=== PATIENT | female | born 1950 | race Caucasian/White ===

== ENCOUNTER → 2018-03-06 10:58 | Outpatient (CLI) | payer MEDICARE, OTHER, SELFPAY ==
--- NOTE | 2018-03-06 | DI.MG.S_ITS ---
BILATERAL DIGITAL SCREENING MAMMOGRAM 3D/2D WITH CAD: 03/06/2018 CLINICAL: Routine screening. Family history of breast cancer. Comparison is made to exams dated: 03/05/2017 mammogram, 02/14/2017 mammogram, and 02/09/2016 mammogram - [facility]. The tissue of both breasts is heterogeneously dense. This may lower the sensitivity of mammography. Current study was also evaluated with a Computer Aided Detection (CAD) system. There is architectural distortion in the right breast middle depth central to the nipple seen on the craniocaudal view only. No other significant masses, calcifications, or other findings are seen in either breast. IMPRESSION: INCOMPLETE: NEEDS ADDITIONAL IMAGING EVALUATION The architectural distortion in the right breast is indeterminate. Additional views with possible ultrasound are recommended. This exam was interpreted at Station ID: [id number]. NOTE: For mammograms, a report in lay terms will be sent to the patient. Approximately 15% of breast malignancies will not be visualized mammographically. In the management of a palpable breast mass, a negative mammogram must not discourage biopsy of a clinically suspicious lesion. Electronically Signed By: Karlene lewis/leslie:03/06/2018 11:47:42 letter sent: Additional Imaging Needed ACR BI-RADS Category 0: Incomplete 3340F
== END ==
PROVIDERS: Family Provider Physician Assistant; PCP Physician Assistant; Visit Provider Physician Assistant
DX: Z12.31 Encounter for screening mammogram for malignant neoplasm of breast (principal); Z80.3 Family history of malignant neoplasm of breast
CPT/HCPCS: 77063; 77067

== ENCOUNTER → 2018-03-17 09:41 | Outpatient (CLI) | payer MEDICARE, OTHER, SELFPAY ==
--- NOTE | 2018-03-17 09:44 | DI.MG.S_ITS ---
UNILATERAL RIGHT DIGITAL DIAGNOSTIC MAMMOGRAM 3D/2D WITH ADDITIONAL VIEWS: 03/17/2018 CLINICAL: Additional evaluation requested from prior study. Comparison is made to exams dated: 03/06/2018 mammogram, 03/05/2017 mammogram, and 02/14/2017 mammogram - [facility]. The tissue of the right breast is heterogeneously dense. This may lower the sensitivity of mammography. There is irregular low density architectural distortion with an indistinct margin in the right breast middle depth central to the nipple seen on the craniocaudal view only. No other significant masses or calcifications are seen in the breast. IMPRESSION: INCOMPLETE: NEEDS ADDITIONAL IMAGING EVALUATION The irregular low density architectural distortion in the right breast is indeterminate. An ultrasound is recommended. This exam was interpreted at Station ID: [id number]. NOTE: For mammograms, a report in lay terms will be sent to the patient. Approximately 15% of breast malignancies will not be visualized mammographically. In the management of a palpable breast mass, a negative mammogram must not discourage biopsy of a clinically suspicious lesion. Electronically Signed By: Adria aaron/leslie:03/17/2018 10:44:00 letter sent: Need Ultrasound ACR BI-RADS Category 0: Incomplete 3340F
--- NOTE | 2018-03-17 09:44 | DI.US.S_ITS ---
ULTRASOUND OF RIGHT BREAST: 03/17/2018 CLINICAL: Follow up from addtional views. Comparison is made to exams dated: 03/17/2018 mammogram, 03/06/2018 mammogram, 03/05/2017 mammogram, and 02/14/2017 mammogram - [facility]. Color flow and real-time ultrasound of the right breast were performed on the areas of interest. There are multiple benign oval simple cysts in the right breast central to the nipple anterior depth. These oval simple cysts are hypoechoic with posterior acoustic enhancement. Color flow imaging demonstrates that there is no vascularity present. IMPRESSION: INCOMPLETE: NEEDS ADDITIONAL IMAGING EVALUATION - FOLLOW-UP RECOMMENDED The multiple oval simple cysts in the right breast are benign. There is no abnormality seen in the right breast to correspond with the architectural distortion seen on mammography, however, breast MRI is recommended. This exam was interpreted at Station ID: [id number]. Electronically Signed By: Adria Huizar M.D. ddp/:03/17/2018 11:28:26 letter sent: Need MRI Ultrasound BI-RADS: 0 Indeterminate
== END ==
PROVIDERS: Family Provider Physician Assistant; PCP Physician Assistant; Visit Provider Physician Assistant
DX: R92.8 Other abnormal and inconclusive findings on diagnostic imaging of breast (principal); N60.02 Solitary cyst of left breast
CPT/HCPCS: 76642; 77065; G0279

== ENCOUNTER → 2018-04-03 09:15 | Outpatient (CLI) | payer MEDICARE, OTHER, SELFPAY ==
[2018-04-03 10:17] LABS: BUN Creatinine Ratio 22.5 (6-22); Blood Urea Nitrogen 18 mg/dL (7-17); Estimated Glomerular Filt Rate > 60.0 mL/min (>60)
== END ==
PROVIDERS: PCP Physician Assistant; Visit Provider Physician Assistant
DX: Z01.818 Encounter for other preprocedural examination (principal)
CPT/HCPCS: 36415; 82565; 84520

== ENCOUNTER → 2018-04-08 09:26 | Outpatient (CLI) | payer MEDICARE, OTHER, SELFPAY ==
--- NOTE | 2018-04-08 09:29 | DI.MRI.S_ITS ---
BREAST MRI OF BOTH BREASTS : 04/08/2018 CLINICAL: Abnormal mammogram right breast. Comparison is made to exams dated: 03/17/2018 ultrasound, 03/17/2018 mammogram, and 03/06/2018 mammogram - [facility]. Informed consent was obtained from the patient. Axial T1, T2, and pre and post contrast T1 images were obtained. Bilateral background breast enhancement is mild. Prior mammographic finding is no longer seen right breast. There are no areas of distortion, abnormal enhancement or suspicious masses in either breast. IMPRESSION: NEGATIVE There is no MRi evidence of malignancy bilaterally. Questioned right breast distortion resolves on MRI imaging. A 1 year screening mammogram is recommended. This exam was interpreted at Station ID: [id number]. Electronically Signed By: Forest Dewitt M.D. cj/:04/08/2018 16:28:59 letter sent: Normal Exam ACR BI-RADS Category 1: Negative 3341F
== END ==
PROVIDERS: Family Provider Physician Assistant; PCP Physician Assistant; Visit Provider Physician Assistant
DX: R92.8 Other abnormal and inconclusive findings on diagnostic imaging of breast (principal)
CPT/HCPCS: A9579; C8908

== ENCOUNTER → 2018-11-03 08:51 | Outpatient (CLI) | payer MEDICARE, OTHER, SELFPAY ==
[2018-11-03 10:35] LABS: Alanine Aminotransferase 24 IU/L (9-52); Albumin 4.5 g/dL (3.5-5.0); Albumin Globulin Ratio 1.4 (1.0-2.8); Alkaline Phosphatase 84 U/L (38-126); Aspartate Aminotransferase 22 IU/L (14-36); Bilirubin Total 0.6 mg/dL (0.2-1.3); Blood Urea Nitrogen 16 mg/dL (7-17); Calcium 9.8 mg/dL (8.4-10.2); Carbon Dioxide 28 mmol/L (22-32); Chloride 101 mmol/L (98-107); Cholesterol 234 mg/dL (140-199); Estimated Glomerular Filt Rate 55.5 mL/min (>60); Globulin 3.2 g/dL (1.7-4.1); Glucose 95 mg/dL (80-110); HDL Cholesterol 66 mg/dL (40-60); HEMOLYSIS < 15 (0-50); LDL Cholesterol Calculated 154 mg/dL (<100); Sodium 139 mmol/L (137-145); Total Protein 7.7 g/dL (6.3-8.2); Triglycerides 72 mg/dL (35-150)
[2018-11-03 10:52] LABS: Potassium 5.4 mmol/L (3.4-5.1)
== END ==
PROVIDERS: PCP Physician Assistant; Visit Provider Physician Assistant
DX: E78.5 Hyperlipidemia, unspecified (principal)
CPT/HCPCS: 36415; 80053; 80061

== ENCOUNTER → 2019-05-04 11:51 | Outpatient (CLI) | payer MEDICARE, OTHER, SELFPAY ==
--- NOTE | 2019-05-04 | DI.MG.S_ITS ---
BILATERAL DIGITAL SCREENING MAMMOGRAM 3D/2D WITH CAD: 05/04/2019 CLINICAL: Routine screening. Family history of breast cancer. Comparison is made to exams dated: 03/17/2018 mammogram, 02/14/2017 mammogram, and 02/09/2016 mammogram - [facility]. The tissue of both breasts is heterogeneously dense. This may lower the sensitivity of mammography. Current study was also evaluated with a Computer Aided Detection (CAD) system. There is a mole marker on the left breast. No significant masses, calcifications, or other findings are seen in either breast. There has been no significant interval change. IMPRESSION: NEGATIVE There is no mammographic evidence of malignancy. A 1 year screening mammogram is recommended. This exam was interpreted at Station ID: [id number]. NOTE: For mammograms, a report in lay terms will be sent to the patient. Approximately 15% of breast malignancies will not be visualized mammographically. In the management of a palpable breast mass, a negative mammogram must not discourage biopsy of a clinically suspicious lesion. Electronically Signed By: Jerome queen/leslie:05/04/2019 18:29:16 letter sent: Normal Exam ACR BI-RADS Category 1: Negative 3341F
== END ==
PROVIDERS: PCP Physician Assistant; Visit Provider Physician Assistant
DX: Z12.31 Encounter for screening mammogram for malignant neoplasm of breast (principal); Z80.3 Family history of malignant neoplasm of breast
CPT/HCPCS: 77063; 77067

== ENCOUNTER → 2020-05-06 14:59 | Outpatient (CLI) | payer MEDICARE, OTHER, SELFPAY ==
--- NOTE | 2020-05-06 | DI.MG.S_ITS ---
BILATERAL DIGITAL SCREENING MAMMOGRAM 3D/2D WITH CAD: 05/06/2020 CLINICAL: Routine screening. Family history of breast cancer. Comparison is made to exams dated: 05/04/2019 mammogram, 03/17/2018 mammogram, 03/06/2018 mammogram, 02/09/2016 mammogram, and 02/07/2015 mammogram - [facility]. The tissue of both breasts is heterogeneously dense. This may lower the sensitivity of mammography. Current study was also evaluated with a Computer Aided Detection (CAD) system. There are benign calcifications in both breasts. No significant masses, calcifications, or other findings are seen in either breast. There has been no significant interval change. IMPRESSION: BENIGN There is no mammographic evidence of malignancy. A 1 year screening mammogram is recommended. This exam was interpreted at Station ID: [id number]. NOTE: For mammograms, a report in lay terms will be sent to the patient. Approximately 15% of breast malignancies will not be visualized mammographically. In the management of a palpable breast mass, a negative mammogram must not discourage biopsy of a clinically suspicious lesion. Electronically Signed By: Mick dodd/leslie:05/06/2020 17:43:33 letter sent: Normal Exam ACR BI-RADS Category 2: Benign Finding(s) 3342F
== END ==
PROVIDERS: PCP Physician Assistant; Referring Provider Physician Assistant; Visit Provider Physician Assistant
DX: Z12.31 Encounter for screening mammogram for malignant neoplasm of breast (principal); Z80.3 Family history of malignant neoplasm of breast
CPT/HCPCS: 77063; 77067

== ENCOUNTER 2021-02-01 15:41 | Emergency (ER) | payer MEDICARE, OTHER, SELFPAY ==
[2021-02-01 15:47] VITALS: BP 146/70; PULSE 90; RESP 18; TEMP 37.2; O2SAT 96
--- NOTE | 2021-02-01 15:51 | DI.RAD.S_ITS ---
PROCEDURE: XR ANKLE RT MIN 3V INDICATIONS: twisting injury TECHNIQUE: 3 views of the ankle were acquired. COMPARISON: [facility], , ANKLE 3 VIEWS LEFT, 04/04/2015, 8:36. FINDINGS: Bones: No dislocations. Ankle mortise is normally aligned. No suspicious bony lesions. Transverse fracture at the lateral malleolus, minimally displaced. Soft tissues: No tibiotalar joint effusion. Achilles tendon appears normal. IMPRESSION: Acute transverse fracture lateral malleolus with overlying soft tissue swelling, without widening of the ankle mortise joint. Dictated by: Colin Amaral M.D. on 02/01/2021 at 16:36 Approved by: Colin Amaral M.D. on 02/01/2021 at 16:37
--- NOTE | 2021-02-01 16:20 | ED.LOWEXIN ---
HPI - Extremity Injury (Lower) General Chief Complaint: Extremity Injury, Lower Stated Complaint: fell and possible broke or sprained right foot Time Seen by Provider: 02/01/21 15:48 Source: patient Mode of arrival: Ambulatory Limitations: no limitations History of Present Illness HPI Narrative: 71-year-old female nonsmoker with noncontributory medical history presents with a family member and a chief complaint of stepping awkwardly on her right ankle and having pain and swelling over her left ankle. She now has increased pain with ambulation and improvement with rest. She denies any numbness, tingling or weakness. She denies history of the same. She denies any calf or sparrow pain or knee or hip injury. She states that she was exiting a trailer when a dog on a leash got caught up in her feet causing her to fall forward instep awkwardly complaint: ankle injury Onset (ago): hour(s) Type of Injury: inversion Place: street/outdoors Severity: moderate Relieving factors: rest Exacerbating factors: weight bearing and movement Context: fall and walking Associated symptoms: snap/pop sensation and able to partially bear weight Other symptoms: none Related Data Home Medications Medication Instructions Recorded Confirmed aspirin 81 mg tablet,delayed 81 mg PO DAILY 11/06/18 06/14/20 release cholecalciferol (vitamin D3) 25 25 mcg PO DAILY 06/14/20 06/14/20 mcg (1,000 unit) capsule turmeric liquid See Rx Instructions PO 06/14/20 Allergies Allergy/AdvReac Type Severity Reaction Status Date / Time meperidine [MEPERIDINE] AdvReac Intermediate (DEMEROL) Verified 11/06/18 15:02 LOW BLOOD PRESSURE Review of Systems Constitutional Constitutional: Denies chills, Denies fatigue, Denies fever(s), Denies frequent falls, Denies lethargy and Denies weakness Eyes Eyes: Denies change in vision, Denies eye discharge, Denies irritation and Denies loss of vision ENT Ears, Nose, Mouth, and Throat: Denies change in voice, Denies dizziness, Denies neck pain, Denies sore throat and Denies throat swelling Cardiovascular Cardiovascular: Denies chest pain, Denies irregular heart rhythm, Denies lightheadedness, Denies palpitations, Denies dyspnea, Denies dyspnea on exertion and Denies orthopnea Respiratory Respiratory: Denies cough, Denies dyspnea, Denies dyspnea on exertion and Denies wheezing Gastrointestinal Gastrointestinal: Denies abdominal pain, Denies change in bowel habits, Denies diarrhea, Denies nausea and Denies vomiting Musculoskeletal Musculoskeletal: Reports joint swelling, Reports limited range of motion, Denies neck pain and Denies numbness Integumentary/Breasts Skin/Breast: Denies pruritus, Denies erythema, Denies rash and Denies wounds Neurologic Neurologic: Denies behavioral changes, Denies confusion, Denies dizziness, Denies frequent falls, Denies loss of vision, Denies numbness and Denies weakness Psychiatric Psychiatric: Denies anxiety, Denies behavioral changes, Denies confusion, Denies depression, Denies homicidal ideation and Denies suicidal ideation Endocrine Endocrine: Denies fatigue, Denies flushing and Denies palpitations Hematologic/Lymphatic Hematologic/Lymphatic: Denies easy bruising Allergic/Immunologic Allergic/Immunologic: Denies urticaria, Denies throat swelling and Denies wheezing Patient History Medical History Cystocele Weakness of pelvic floor Family History Father COPD (chronic obstructive pulmonary disease) Social History Smoking Status: Never smoker Smoking Status: Never smoker Exam Narrative Exam Narrative: GEN: AOx3 and in mild distress EYES: Pupils are equal, round, and reactive to light and accommodation. Extraoccular muscles are intact bilaterally. There is no subconjunctival hemorrhage or exudate. CHEST: Lungs are clear to auscultation bilaterally and free of wheezes, rales, or rhonchi. Heart rate is regular rhythm, there are no murmurs, clicks, rubs, or gallops. There is no chest wall tenderness. ABD: Abdomen is soft and nontender. There is no guarding or rebound. Bowel sounds are normal in all 4 quadrants. There is no mass or organomegaly. EXT: Full but painful range of motion of the right ankle with swelling and tenderness to palpation over the lateral malleolus. This injury is closed, isolated and neurovascularly intact SKIN: Warm, pink, and dry. No erythema or rash Initial Vital Signs Initial Vital Signs: Vital Signs Temperature 98.9 F 02/01/21 15:47 Pulse Rate 90 02/01/21 15:47 Respiratory Rate 18 02/01/21 15:47 Blood Pressure 146/70 H 02/01/21 15:47 Pulse Oximetry 96 02/01/21 15:47 Procedures Orthopedic Splinting/Casting Injury #1: Side: right Lower Extremity Injury Location: ankle Lower Extremity Immobilizer: boot orthosis Other Orthopedic Equipment: crutches Post splinting neuro exam: intact Post splinting vascular exam: intact Placed by: Nursing Course Orders Ordered: ED Orders 02/01/21 15:51 XR ankle RT min 3V Stat Consultations Consultation #1: I have discussed this patient with the on-call orthopedist who recommends weight-bearing as tolerated in a boot orthosis, crutches if needed, pain control and follow-up Vital Signs Vital signs: Vital Signs - 8 hr 02/01/21 15:47 02/01/21 17:30 Temperature 98.9 F Pulse Rate 90 73 Respiratory Rate 18 18 Blood Pressure 146/70 H 141/66 H Pulse Oximetry 96 98 MDM - Extremity Injury (Lower) Imaging Data Extremity x-ray #1: Radiologist's Impression: Chart Viewer Diagnostics DATE TYPE STATUS REF RANGE/AUTHOR Hx Today 15:51 Colin Amaral 05/06/20 00:00 Call,Mick 05/04/19 00:00 Jerome Mcmullen 04/08/18 09:29 Emmanuel Dewitt 03/17/18 09:44 Huizar,Adria 03/17/18 09:44 Huizar,Adria 03/06/18 00:00 Karlene Irving Kathryn M 71, F0 1950 [facility] 81.647kg Extremity Injury, Lower Search Chart No Data to Display NonFormulary Not Included in Conflicts (DEMEROL) LOW BLOOD PRESSURE ONSET Today 17:30 Gabriela Jaimes 71 F [address] [id number] ReportSigned Patient: Jaimes,Gabriela MMR#: [id number]: 1950cct:[id number]/Sex: 71 / FDate of Service: 02/01/21Loc: EDAccession Number: [id number] Procedure: XR ankle RT min 3V Ordering Provider: Juarez Ruiz D.O. PROCEDURE: XR ANKLE RT MIN 3V INDICATIONS: twisting injury TECHNIQUE: 3 views of the ankle were acquired. COMPARISON: [facility], , ANKLE 3 VIEWS LEFT, 04/04/2015, 8:36. FINDINGS: Bones: No dislocations. Ankle mortise is normally aligned. No suspicious bony lesions. Transverse fracture at the lateral malleolus, minimally displaced. Soft tissues: No tibiotalar joint effusion. Achilles tendon appears normal. IMPRESSION: Acute transverse fracture lateral malleolus with overlying soft tissue swelling, without widening of the ankle mortise joint. Dictated by: Colin Amaral M.D. on 02/01/2021 at 16:36 Approved by: Colin Amaral M.D. on 02/01/2021 at 16:37 Discharge Plan Departure Patient Disposition: Home Clinical Impression: Ankle fracture, lateral malleolus, closed Qualifiers: Encounter type: initial encounter Fracture alignment: nondisplaced Laterality: right Qualified Code(s): S82.64XA - Nondisplaced fracture of lateral malleolus of right fibula, initial encounter for closed fracture Instructions: DI for Ankle Fracture Activity Restrictions/Additional Instructions: *You have been diagnosed with [nondisplaced lateral malleolus fracture.] *What to do: *Please continue to take your regular medications as directed. [ ] New medication prescriptions sent to your pharmacy: [ ] [ ] New medication written as a paper prescription [x ] No new medications given * please follow-up with [facility], call them tomorrow morning and let them know that you were seen in the emergency department and we asked that you be seen at their clinic in follow-up *Return to Emergency Department if you should have any new, worsening or concerning symptoms, such as [fever greater than 101 F, shaking chills, worsening pain, persistent vomiting or other bothersome symptoms] Prescriptions: No Action aspirin [Aspirin Low Dose] 81 mg tablet,delayed release (DR/EC) 81 mg PO DAILY RF: 0 cholecalciferol (vitamin D3) 25 mcg (1,000 unit) capsule 25 mcg PO DAILY RF: 0 turmeric liquid See Rx Instructions PO RF: 0 Referrals: Katherine Angeles ARNP [Primary Care Provider] - Bella Adame MD [Physician] -
[2021-02-01 17:30] VITALS: BP 141/66; PULSE 73; RESP 18; O2SAT 98
== END 2021-02-01 17:29 | disposition home or self-care (01) ==
PROVIDERS: Emergency Provider Emergency Medicine; PCP Nurse Practitioner Family
DX: S82.64XA Nondisplaced fracture of lateral malleolus of right fibula, initial encounter for closed fracture (principal)
CPT/HCPCS: 73610; 99283

== ENCOUNTER → 2021-05-26 17:04 | Outpatient (CLI) | payer MEDICARE, OTHER, SELFPAY ==
--- NOTE | 2021-05-26 | DI.MG.S_ITS ---
BILATERAL DIGITAL SCREENING MAMMOGRAM 3D/2D WITH CAD: 05/26/2021 CLINICAL: Family history of breast cancer. Comparison is made to exams dated: 05/06/2020 mammogram, 05/04/2019 mammogram, 04/08/2018 breast MRI, 03/06/2018 mammogram, and 02/14/2017 mammogram - [facility]. The tissue of both breasts is heterogeneously dense. This may lower the sensitivity of mammography. Current study was also evaluated with a Computer Aided Detection (CAD) system. There are benign calcifications in both breasts. No significant masses, calcifications, or other findings are seen in either breast. There has been no significant interval change. IMPRESSION: BENIGN There is no mammographic evidence of malignancy. A 1 year screening mammogram is recommended. This exam was interpreted at Station ID: [id number]. NOTE: For mammograms, a report in lay terms will be sent to the patient. Approximately 15% of breast malignancies will not be visualized mammographically. In the management of a palpable breast mass, a negative mammogram must not discourage biopsy of a clinically suspicious lesion. Electronically Signed By: Carlos boles/leslie:05/29/2021 09:32:13 letter sent: Normal Exam ACR BI-RADS Category 2: Benign Finding(s) 3342F
== END ==
PROVIDERS: PCP Nurse Practitioner Family; Referring Provider Nurse Practitioner Family; Visit Provider Nurse Practitioner Family
DX: Z12.31 Encounter for screening mammogram for malignant neoplasm of breast (principal); Z80.3 Family history of malignant neoplasm of breast
CPT/HCPCS: 77063; 77067

== ENCOUNTER → 2022-06-12 09:42 | Outpatient (CLI) | payer MEDICARE, OTHER, SELFPAY ==
--- NOTE | 2022-06-12 09:46 | DI.RAD.S_ITS ---
PROCEDURE: XR CHEST 2V INDICATIONS: eval recurrent L chest wall sensation TECHNIQUE: 2 views of the chest were acquired. COMPARISON: [facility], , CHEST 2 VIEW, 11/23/2013, 9:22. FINDINGS: Surgical changes and devices: None. Lungs and pleura: Lungs are clear. No pleural effusions or pneumothorax. Mediastinum: Mediastinal contours are normal. Heart size is normal. Bones and chest wall: No suspicious bony abnormalities. Soft tissues appear unremarkable. IMPRESSION: No acute cardiopulmonary abnormality. Dictated by: Mick Chris M.D. on 06/12/2022 at 10:34 Approved by: Mick Chris M.D. on 06/12/2022 at 10:36
== END ==
PROVIDERS: PCP Registered Nurse Diabetes Educator; Referring Provider Registered Nurse Diabetes Educator; Visit Provider Registered Nurse Diabetes Educator
DX: M81.0 Age-related osteoporosis without current pathological fracture (principal); R09.89 Other specified symptoms and signs involving the circulatory and respiratory systems; M85.89 Other specified disorders of bone density and structure, multiple sites
CPT/HCPCS: 71046; 77080

== ENCOUNTER → 2022-06-15 15:04 | Outpatient (CLI) | payer MEDICARE, OTHER, SELFPAY ==
--- NOTE | 2022-06-15 | DI.MG.S_ITS ---
BILATERAL DIGITAL SCREENING MAMMOGRAM 3D/2D WITH CAD: 06/15/2022 CLINICAL: Routine screening. Family history of breast cancer. Comparison is made to exams dated: 05/26/2021 mammogram, 05/06/2020 mammogram, and 05/04/2019 mammogram - [facility]. Both breasts are heterogeneously dense, which may obscure small masses (category c / 51-75% glandular tissue). Current study was also evaluated with a Computer Aided Detection (CAD) system. There are benign calcifications in both breasts. No significant masses, calcifications, or other findings are seen in either breast. There has been no significant interval change. IMPRESSION: BENIGN There is no mammographic evidence of malignancy. A 1 year screening mammogram is recommended. Based on the Tyrer Cuzick model (a risk assessment model) the patient's lifetime risk is 7.7% and her 10 year risk is 4.9%. According to the ACR, ACS, and NCCN guidelines, an annual breast MRI exam along with mammogram is recommended if the patient's lifetime risk is 20% or greater. This exam was interpreted at Station ID: [id number]. NOTE: For mammograms, a report in lay terms will be sent to the patient. Approximately 15% of breast malignancies will not be visualized mammographically. In the management of a palpable breast mass, a negative mammogram must not discourage biopsy of a clinically suspicious lesion. Electronically Signed By: Simone Mata M.D., jr/leslie:06/18/2022 10:35:41 letter sent: Normal Exam ACR BI-RADS Category 2: Benign Finding(s) 3342F
== END ==
PROVIDERS: PCP Registered Nurse Diabetes Educator; Referring Provider Registered Nurse Diabetes Educator; Visit Provider Registered Nurse Diabetes Educator
DX: Z12.31 Encounter for screening mammogram for malignant neoplasm of breast (principal); Z80.3 Family history of malignant neoplasm of breast
CPT/HCPCS: 77063; 77067

== ENCOUNTER → 2022-08-27 07:49 | Outpatient (CLI) | payer MEDICARE, OTHER, SELFPAY ==
[2022-08-27 08:59] LABS: Add Manual Diff / Slide Review NO; Basophils Absolute Auto 100 /uL (0-100); Basophils Percent Auto 1.1 % (0-2); Eosinophils Absolute Auto 300 /uL (0-450); Eosinophils Percent Auto 5.2 % (2-4); Hematocrit 37.5 % (36-46); Hemoglobin 12.7 g/dL (12.0-16.0); Lymphocytes Absolute Auto 1600 /uL (1100-4500); Lymphocytes Percent Auto 33.4 % (25-40); Mean Corpuscular HGB Conc 33.8 % (30-36); Mean Corpuscular Hemoglobin 30.3 PG (26-34); Mean Corpuscular Volume 89.6 fL (80-100); Monocytes Absolute Auto 400 /uL (0-900); Monocytes Percent Auto 7.5 % (3-14); Neutrophils Absolute Auto 2500 /uL (1500-7000); Neutrophils Percent Auto 52.8 % (50-75); Platelet Count 218 X10^3/uL (150-400); Red Blood Cell Count 4.18 X10^6/uL (4.0-5.2); Red Cell Distribution Width 13.6 % (11.6-14.8); White Blood Cell Count 4.8 X10^3/uL (4.5-11.0)
[2022-08-27 09:50] LABS: Vitamin D 25 Hydroxy (D3) 39.4 ng/mL (30.0-100.0)
[2022-08-27 12:21] LABS: Alanine Aminotransferase 15 IU/L (<35); Albumin 3.9 g/dL (3.5-5.0); Albumin Globulin Ratio 1.3 (1.0-2.8); Alkaline Phosphatase 79 U/L (38-126); Aspartate Aminotransferase 20 IU/L (14-36); BUN Creatinine Ratio 10.7 (6-22); Bilirubin Total 0.5 mg/dL (0.2-1.3); Blood Urea Nitrogen 9 mg/dL (7-17); Calcium 8.7 mg/dL (8.4-10.2); Carbon Dioxide 26 mmol/L (22-32); Chloride 102 mmol/L (98-107); Cholesterol 238 mg/dL (140-199); Estimated Glomerular Filt Rate > 60 mL/min (>60); Globulin 2.9 g/dL (1.7-4.1); Glucose 90 mg/dL (80-110); HDL Cholesterol 57 mg/dL (40-60); HEMOLYSIS < 15 (0-50); LDL Cholesterol Calculated 167 mg/dL (<100); Potassium 4.1 mmol/L (3.4-5.1); Sodium 135 mmol/L (137-145); Total Protein 6.8 g/dL (6.3-8.2); Triglycerides 69 mg/dL (35-150)
== END ==
PROVIDERS: PCP Registered Nurse Diabetes Educator; Referring Provider Registered Nurse Diabetes Educator; Visit Provider Registered Nurse Diabetes Educator
DX: E78.5 Hyperlipidemia, unspecified (principal); M81.0 Age-related osteoporosis without current pathological fracture; R94.4 Abnormal results of kidney function studies; Z86.2 Personal history of diseases of the blood and blood-forming organs and certain disorders involving the immune mechanism
CPT/HCPCS: 36415; 80053; 80061; 82306; 85025

== ENCOUNTER → 2023-06-27 08:20 | Outpatient (CLI) | payer MEDICARE, OTHER, SELFPAY ==
--- NOTE | 2023-06-27 | DI.MG.S_ITS ---
BILATERAL DIGITAL SCREENING MAMMOGRAM 3D/2D WITH CAD: 06/27/2023 CLINICAL: Routine screening. Family history of breast cancer. Comparison is made to exams dated: 06/15/2022 mammogram, 05/26/2021 mammogram, and 05/06/2020 mammogram - . Both breasts are heterogeneously dense, which may obscure small masses (category c / 51-75% glandular tissue). Current study was also evaluated with a Computer Aided Detection (CAD) system. There is a mass in the left breast central to the nipple middle depth. This is increased in size. No other significant masses, calcifications, or other findings are seen in either breast. IMPRESSION: INCOMPLETE: NEEDS ADDITIONAL IMAGING EVALUATION The mass in the left breast likely represents a cyst and is indeterminate. Additional views with possible ultrasound are recommended. Based on the Tyrer Cuzick model (a risk assessment model) the patient's lifetime risk is 7.3% and her 10 year risk is 5.0%. According to the ACR, ACS, and NCCN guidelines, an annual breast MRI exam along with mammogram is recommended if the patient's lifetime risk is 20% or greater. This exam was interpreted at Station ID: [id number]. NOTE: For mammograms, a report in lay terms will be sent to the patient. Approximately 15% of breast malignancies will not be visualized mammographically. In the management of a palpable breast mass, a negative mammogram must not discourage biopsy of a clinically suspicious lesion. Electronically Signed By: Karlene lewis/leslie:06/27/2023 16:27:11 letter sent: Additional Imaging Needed ACR BI-RADS Category 0: Incomplete 3340F
== END ==
PROVIDERS: PCP Registered Nurse Diabetes Educator; Referring Provider Registered Nurse Diabetes Educator; Visit Provider Registered Nurse Diabetes Educator
DX: Z12.31 Encounter for screening mammogram for malignant neoplasm of breast (principal); Z80.3 Family history of malignant neoplasm of breast
CPT/HCPCS: 77063; 77067

== ENCOUNTER → 2023-07-16 08:41 | Outpatient (CLI) | payer MEDICARE, OTHER, SELFPAY ==
--- NOTE | 2023-07-16 08:42 | DI.US.S_ITS ---
LIMITED ULTRASOUND OF LEFT BREAST AND AXILLA: 07/16/2023 CLINICAL: Patient returns today to evaluate a focal asymmetry in the left breast. Comparison is made to exams dated: 07/16/2023 mammogram, 06/27/2023 mammogram, 06/15/2022 mammogram, and 05/26/2021 mammogram - [facility]. Color flow ultrasound of the left breast 3 o'clock, and axilla regions was performed. Salmon scale images of the real-time examination were reviewed. There is a 0.5 cm x 0.6 cm x 0.5 cm oval cyst with a smooth internal wall in the left breast at 3 o'clock middle depth 3 cm from the nipple. This oval cyst is hypoechoic with posterior acoustic enhancement. This correlates with mammography findings. Color flow imaging demonstrates that there is no vascularity present. No significant abnormalities were seen sonographically in the left axilla. IMPRESSION: PROBABLY BENIGN The 0.5 cm x 0.6 cm x 0.5 cm oval cyst in the left breast is consistent with a complicated cyst and is probably benign. A follow-up left ultrasound in 6 months is recommended to demonstrate stability. This exam was interpreted at Station ID: [id number]. Electronically Signed By: Gonzalo chamberlain/leslie:07/16/2023 10:05:47 letter sent: Followup Recommended Ultrasound BI-RADS: 3 Probably benign
--- NOTE | 2023-07-16 08:42 | DI.MG.S_ITS ---
UNILATERAL LEFT DIGITAL DIAGNOSTIC MAMMOGRAM 3D/2D WITH ADDITIONAL VIEWS: 07/16/2023 CLINICAL: Additional evaluation requested from prior study. Comparison is made to exams dated: 06/27/2023 mammogram, 06/15/2022 mammogram, and 05/26/2021 mammogram - [facility]. The left breast is heterogeneously dense, which may obscure small masses (category c / 51-75% glandular tissue). There is an oval equal density mass with a circumscribed margin in the left breast at 3 o'clock middle depth. This is seen in additional views. This is increased in size. No other significant masses or calcifications are seen in the breast. IMPRESSION: INCOMPLETE: NEEDS ADDITIONAL IMAGING EVALUATION The oval equal density mass in the left breast likely represents a cyst and is indeterminate. An ultrasound is recommended. Based on the Tyrer Cuzick model (a risk assessment model) the patient's lifetime risk is 7.3% and her 10 year risk is 5.0%. According to the ACR, ACS, and NCCN guidelines, an annual breast MRI exam along with mammogram is recommended if the patient's lifetime risk is 20% or greater. This exam was interpreted at Station ID: [id number]. NOTE: For mammograms, a report in lay terms will be sent to the patient. Approximately 15% of breast malignancies will not be visualized mammographically. In the management of a palpable breast mass, a negative mammogram must not discourage biopsy of a clinically suspicious lesion. Electronically Signed By: Gonzalo chamberalin/leslie:07/16/2023 10:03:52 ACR BI-RADS Category 0: Incomplete 3340F
== END ==
PROVIDERS: PCP Registered Nurse Diabetes Educator; Referring Provider Registered Nurse Diabetes Educator; Visit Provider Registered Nurse Diabetes Educator
DX: R92.8 Other abnormal and inconclusive findings on diagnostic imaging of breast (principal); N60.02 Solitary cyst of left breast
CPT/HCPCS: 76642; 77065; G0279

== ENCOUNTER → 2024-02-04 08:45 | Outpatient (CLI) | payer MEDICARE, OTHER, SELFPAY ==
--- NOTE | 2024-02-04 08:46 | DI.US.S_ITS ---
SECONDLOOK ULTRASOUND OF LEFT BREAST: 02/04/2024 CLINICAL: 6 month follow-up of cysts. Follow up from addtional views. Comparison is made to exams dated: 07/16/2023 ultrasound, 07/16/2023 mammogram, 06/27/2023 mammogram, and 06/15/2022 mammogram - [facility]. Color flow and real-time ultrasound of the left breast were performed. Salmon scale images of the real-time examination were reviewed. There is a 0.5 cm x 0.5 cm x 0.4 cm oval cyst with a smooth internal wall in the left breast at 3 o'clock middle depth 3 cm from the nipple. This oval cyst is hypoechoic with posterior acoustic enhancement. This abnormality is not significantly changed and correlates with mammography findings. Color flow imaging demonstrates that there is no vascularity present. IMPRESSION: PROBABLY BENIGN The 0.5 cm x 0.5 cm x 0.4 cm oval cyst in the left breast is consistent with a complicated cyst and is probably benign. A follow-up bilateral mammogram and a left ultrasound in 6 months is recommended to demonstrate stability. Findings and recommendations were conveyed to the patient during today's evaluation. This exam was interpreted at Station ID: [id number]. Electronically Signed By: Carlos Muñoz M.D. aty/:02/04/2024 12:46:55 letter sent: Followup Recommended Ultrasound BI-RADS: 3 Probably benign
== END ==
LOC: US 08:45
PROVIDERS: PCP Registered Nurse Diabetes Educator; Referring Provider Registered Nurse Diabetes Educator; Visit Provider Registered Nurse Diabetes Educator
DX: N60.02 Solitary cyst of left breast (principal)
CPT/HCPCS: 76642

== ENCOUNTER → 2024-08-06 10:10 | Outpatient (CLI) | payer MEDICARE, OTHER, SELFPAY ==
--- NOTE | 2024-08-06 10:13 | DI.US.S_ITS ---
LIMITED ULTRASOUND OF LEFT BREAST: 08/06/2024 CLINICAL: 6 month follow up left breast focal asymmetry. Comparison is made to exams dated: 08/06/2024 mammogram, 02/04/2024 ultrasound, 07/16/2023 mammogram, 06/27/2023 mammogram, 06/15/2022 mammogram, and 07/16/2023 ultrasound - [facility]. Color flow and real-time ultrasound of the left breast 3 o'clock region were performed. Salmon scale images of the real-time examination were reviewed. There is a 0.6 cm x 0.6 cm x 0.5 cm oval simple cyst in the left breast at 3 o'clock middle depth 3 cm from the nipple. This oval simple cyst is anechoic. This correlates with mammography findings. Color flow imaging demonstrates that there is no vascularity present. IMPRESSION: BENIGN There is no sonographic evidence of malignancy. The 0.6 cm cyst in the left breast is now simple in appearance and is benign. Exam findings were conveyed to the patient. A 1 year screening mammogram is recommended. This exam was interpreted at Station ID: [id number]. Electronically Signed By: Mick Chris M.D. slc/:08/06/2024 11:06:33 letter sent: Normal Exam ACR BI-RADS Category 2: Benign
--- NOTE | 2024-08-06 10:13 | DI.MG.S_ITS ---
BILATERAL DIGITAL DIAGNOSTIC MAMMOGRAM 3D/2D: 08/06/2024 CLINICAL: Short term follow up of the left breast, due for bilateral imaging. Comparison is made to exams dated: 07/16/2023 mammogram, 06/27/2023 mammogram, 06/15/2022 mammogram, and 02/04/20[address] ultrasound - [facility]. The breasts are heterogeneously dense, which may obscure small masses (category c / 51-75% glandular tissue). There is a mass with a circumscribed margin in the left breast at 3 o'clock middle depth. This is not significantly changed. No other significant masses, calcifications, or other findings are seen in either breast. IMPRESSION: INCOMPLETE: NEED ADDITIONAL IMAGING EVALUATION The mass in the left breast is indeterminate. A targeted ultrasound is recommended and will immediately follow. Based on the Tyrer Cuzick model (a risk assessment model) the patient's lifetime risk is 6.8% and her 10 year risk is 5.1%. According to the ACR, ACS, and NCCN guidelines, an annual breast MRI exam along with mammogram is recommended if the patient's lifetime risk is 20% or greater. This exam was interpreted at Station ID: [id number]. NOTE: For mammograms, a report in lay terms will be sent to the patient. Approximately 15% of breast malignancies will not be visualized mammographically. In the management of a palpable breast mass, a negative mammogram must not discourage biopsy of a clinically suspicious lesion. Electronically Signed By: Mick Chris M.D. slc/:08/06/2024 10:49:02 letter sent: Additional Imaging Needed ACR BI-RADS Category 0: Incomplete: Need Additional Imaging Evaluation
== END ==
PROVIDERS: PCP Family Medicine; Referring Provider Registered Nurse Diabetes Educator; Visit Provider Registered Nurse Diabetes Educator
DX: Z12.39 Encounter for other screening for malignant neoplasm of breast (principal); R92.8 Other abnormal and inconclusive findings on diagnostic imaging of breast; N60.02 Solitary cyst of left breast; Z80.3 Family history of malignant neoplasm of breast
CPT/HCPCS: 76642; 77066; G0279

== ENCOUNTER 2024-08-13 07:11 | Day surgery (SDC) | payer MEDICARE, OTHER, SELFPAY ==
[2024-08-13 07:30] VITALS: BP 152/76; PULSE 93; RESP 16; TEMP 36.6; O2SAT 98
--- NOTE | 2024-08-13 08:13 | P.HP_ITS ---
History of Present Illness History of Present Illness Date Patient Seen: 08/13/24 Time Patient Seen: 08:13 Chief complaint: Colonoscopy Narrative: Gabriela is a 74-year-old woman who is here for colonoscopy. Her last colonoscopy was in 2018 and was normal. She had a polyp removed before that. Her mother had colon cancer she thinks in her 50s. [facility]LY [facility] Medical History (Updated 08/13/24 @ 08:14 by Timoteo Redding MD) Family history of breast cancer Osteoporosis Weakness of pelvic floor Cystocele Family History (Updated 03/05/24 @ 16:47 by Shari Freeman PA-C) Father COPD (chronic obstructive pulmonary disease) Grandmother Cancer Social History Smoking Status: Never smoker alcohol intake: current Meds Home Medications and Allergies Home Medications Medication Instructions Recorded Confirmed Type aspirin 81 mg tablet,delayed 81 mg PO DAILY 11/06/18 08/13/24 History release (Sujata Low Dose Aspirin) Allergies Allergy/AdvReac Type Severity Reaction Status Date / Time meperidine [From Demerol] AdvReac Intermediate Verified 08/13/24 07:29 Exam Vital Signs (past 8 hours): - 08/13/24 07:30 Temperature 97.8 F Pulse Rate 93 H Respiratory Rate 16 Blood Pressure 152/76 H Pulse Oximetry 98 Oxygen Delivery Method Room Air Oxygen Delivery Method Room Air Const General: No acute distress Resp Effort & Inspection: normal respiratory effort Assessment & Plan Assessment and plan (1) Family history of colon cancer: Status: Acute Plan Colonoscopy Time-Based Coding :: [TOTAL MINUTES] spent with patient and on the chart (including review of chart, obtaining history, exam, reviewing outside data, placing orders, documenting exam and treatment plan, and counseling patient) on [DATE].
[2024-08-13 08:35] VITALS: BP 108/67; PULSE 66; RESP 14; TEMP 36.6; O2SAT 99
--- NOTE | 2024-08-13 08:35 | PM.OP.COLON ---
Operative Date/Time/Diagnoses Date of procedure: 08/13/24 Time of procedure: 08:35 Pre-op diagnosis: Family history of colon cancer Post-op diagnosis: same Procedure & Clinicians Study performed: Colonoscopy Same procedure as scheduled: Yes Surgeon: Timoteo Redding Procedure Notes Procedure in detail: Surgeon: Timoteo Redding MD Anesthesia: Cari Medina CRNA NA Procedure: The patient was brought to the endoscopy suite, placed in left lateral decubitus position. The patient was connected to monitoring devices. A time-out was performed. Sedation was administered. Once the patient was adequately sedated, a digital rectal exam was performed and was normal. The scope was then inserted and advanced to the cecum where the appendiceal orifice was identified and photographed. The scope was then slowly withdrawn over greater than 6 minutes. The mucosa was thoroughly inspected. No polyps were found. There was some sigmoid colon diverticulosis. The scope was retroflexed in the rectum. No other abnormalities were found. The scope was straightened and removed. The patient was awakened and brought to recovery. Scope withdrawal time: 7 minutes Sedation time: 13 minutes EBL: 0 Findings: Scattered sigmoid colon diverticulosis Post-procedure Recommendations: Colonoscopy in 5 years Disposition: PACU
[2024-08-13 08:40] VITALS: BP 100/64; PULSE 75; RESP 12; O2SAT 99
== END 2024-08-13 09:08 | disposition home or self-care (01) ==
PROVIDERS: PCP Family Medicine; Referring Provider Surgery; Visit Provider Surgery
PROC: 0DJD8ZZ Inspection of Lower Intestinal Tract, Via Natural or Artificial Opening Endoscopic (ICD-10-PCS; CPT 45378; principal; 2024-08-13 08:15)
DX: Z12.11 Encounter for screening for malignant neoplasm of colon (principal); Z86.0100 Personal history of colon polyps, unspecified; Z80.0 Family history of malignant neoplasm of digestive organs; K57.30 Diverticulosis of large intestine without perforation or abscess without bleeding
CPT/HCPCS: G0105; J2704

== ENCOUNTER 2025-01-13 19:01 | Emergency (ER) | payer MEDICARE, OTHER, SELFPAY ==
[2025-01-13] VITALS (9 sets, daily range): BP systolic 147–170; BP diastolic 67–77; PULSE 68–89; RESP 18–20; TEMP 36.7; O2SAT 96–99; BMI 28.7
--- NOTE | 2025-01-13 19:27 | ED_ITS ---
HPI - Fall General Chief Complaint: Fall Stated Complaint: Fall, face injury, no thinners Time Seen by Provider: 01/13/25 19:17 Source: patient Mode of arrival: Ambulatory History of Present Illness HPI Narrative: 75-year-old female history of , basal cell carcinoma, on low-dose aspirin daily was playing with a friend's dog when she had a mechanical fall hitting her face and head against the cement with no loss of consciousness. She did experience nausea, neck pain, and headache earlier that has since resolved. Patient denies chest pain, shortness of breath, dizziness, blurred vision, numbness, tingling, down the legs and arms or unsteady gait. Other than what is stated 14 point review of system is negative. Related Data Home Medications Medication Instructions Recorded Confirmed aspirin 81 mg tablet,delayed 81 mg PO DAILY 11/06/18 12/30/24 release (Sujata Low Dose Aspirin) Allergies Allergy/AdvReac Type Severity Reaction Status Date / Time meperidine [From Demerol] AdvReac Intermediate Verified 12/30/24 11:14 Review of Systems Review of Systems ROS Unobtainable: All systems reviewed & are unremarkable except as noted in HPI and below Patient History Medical History (Updated 01/13/25 @ 21:32 by Walter Vazquez DO) Family history of breast cancer Osteoporosis Weakness of pelvic floor Cystocele Family History (Updated 03/05/24 @ 16:47 by Shari Freeman PA-C) Father COPD (chronic obstructive pulmonary disease) Grandmother Cancer Social History Smoking Status: Never smoker alcohol intake: current Smoking Status: Never smoker alcohol intake frequency: a few times a week Alcohol type: wine Exam Narrative Exam Narrative: GENERAL: [75] year old patient appears stated age. Well-developed patient, in mild distress. HEAD: Atraumatic. Normocephalic. EYES: Pupils equal round and reactive. Extraocular motions intact. No scleral icterus. No injection or drainage. L perioribital Hematoma ENT: Nose without bleeding, purulent drainage. Throat without erythema, tonsillar hypertrophy or exudate. Airway patent. NECK: Trachea midline. Non tender CARDIOVASCULAR: Regular rate and rhythm without murmurs, gallops, or rubs. RESPIRATORY: Clear to auscultation. Breath sounds equal bilaterally. No wheezes, rales, or rhonchi. GASTROINTESTINAL: Abdomen soft, non-tender, nondistended. EXTREMITIES: No edema or joint tenderness. BACK: Nontender without deformity or crepitance. No flank tenderness. NEURO: AOx3. Nonfocal neuro exam, GCS 15 SKIN: No rash or erythema of visible areas Initial Vital Signs Initial Vital Signs: Vital Signs Temperature 98.0 F 01/13/25 19:10 Pulse Rate 80 01/13/25 19:10 Respiratory Rate 20 01/13/25 19:10 Blood Pressure 170/74 H 01/13/25 19:10 Pulse Oximetry 99 01/13/25 19:10 Oxygen Delivery Method Room Air 01/13/25 19:10 Course Orders Ordered: ED Orders 01/13/25 20:08 CT facial bones wo con Stat CT head/brain wo con Stat Vital Signs Vital signs: Vital Signs - 8 hr 01/13/25 19:10 01/13/25 20:06 01/13/25 20:30 Temperature 98.0 F Pulse Rate 80 74 68 Respiratory Rate 20 Blood Pressure 170/74 H Pulse Oximetry 99 98 98 Oxygen Delivery Method Room Air 01/13/25 20:47 01/13/25 20:47 01/13/25 21:00 Temperature Pulse Rate 74 89 Respiratory Rate 18 Blood Pressure 162/76 H Pulse Oximetry 99 99 Oxygen Delivery Method 01/13/25 21:00 Temperature Pulse Rate Respiratory Rate 20 Blood Pressure 158/77 H Pulse Oximetry Oxygen Delivery Method MDM - Fall Imaging Data CT scan - head: Radiologist's Impression: [place] [address] CT Scan Report Signed Patient: Gabriela Jaimes MR#: [id number] : 1950 Acct:[id number] Age/Sex: 75 / F Date of Service: 01/13/25 Loc: ED Accession Number: [id number] Procedure: CT head/brain wo con Ordering Provider: Walter Vazquez D.O. PROCEDURE: CT HEAD/BRAIN WO CON INDICATIONS: trauma TECHNIQUE: Noncontrast 4.5 mm thick angled axial sections acquired from the foramen magnum to the vertex, with coronal and sagittal reformats. For radiation dose reduction, the following was used: automated exposure control, adjustment of mA and/or kV according to patient size. COMPARISON: [facility], CT, CT FACIAL BONES WO CON, 01/13/2025, 20:21. FINDINGS: Image quality: Diagnostic. CSF spaces: Subdural hematoma overlying the left cerebral convexity, max diameter of 9 mm. Brain: Very mild midline shift, measuring 2 mm. No herniation. Skull and face: Calvarium and visualized facial bones appear intact, without suspicious lesions. Left anterior scalp hematoma without underlying fracture. Sinuses: Visualized sinuses and mastoids are clear. IMPRESSION: Subdural hematoma overlying the left cerebral convexity, maximum diameter of 9 mm. Left right midline shift of 2 mm. No herniation. Findings discussed with Dr. Vazquez at 8:42 p.m. On 01/13/2025. Dictated by: Harvey Emery M.D. on 01/13/2025 at 20:37 Approved by: Harvey Emery M.D. on 01/13/2025 at 20:41 [place] [address] CT Scan Report Signed Patient: Gabriela Jaimes MR#: [id number] : 1950 Acct:[id number] Age/Sex: 75 / F Date of Service: 01/13/25 Loc: ED Accession Number: [id number] Procedure: CT facial bones wo con Ordering Provider: Walter Vazquez D.O. PROCEDURE: CT FACIAL BONES WO CON INDICATIONS: trauma TECHNIQUE: Noncontrast 2.5 mm thick axial images acquired from the mandible through the frontal sinuses, with coronal and sagittal reformatting. For radiation dose reduction, the following was used: automated exposure control, adjustment of mA and/or kV according to patient size. COMPARISON: None. FINDINGS: Image quality: Excellent. Bones and teeth: Orbital araujo are intact. Sinus araujo show no fracture or deformity. Nasal bones and septum are intact. Visualized portions of the mandible demonstrate no fractures or subluxation. Zygomatic arches are intact. Pterygoid plates are intact. Visualized portions of the skull base and auditory canals are intact. Sinuses: Paranasal sinuses are aerated, without fluid levels, mucosal thickening, or mucoceles. Mastoid air cells are aerated. Soft tissues: Left periorbital contusion. Left globe is intact, without intraconal or extraconal hematoma. Vascular: Visualized vascular structures appear normal in the absence of contrast. Bony vascular foramina and canals are intact. IMPRESSION: Left periorbital scalp contusion, without underlying fracture or perceived globe injury. Dictated by: Harvey Emery M.D. on 01/13/2025 at 20:41 Approved by: Harvey Emery M.D. on 01/13/2025 at 20:44 MDM Narrative Medical decision making narrative: CT scans reviewed vital signs reviewed nurse triage note reviewed medication list reviewed old records reviewed. GCS of 15 nonfocal neuro exam alert oriented x4. Differential diagnosis includes subarachnoid hemorrhage epidural hemorrhage subdural hemorrhage orbital fracture. Case discussed with Dr. Kaba neurosurgeon at [facility] who has accepted the patient for transfer to [facility] ER. Discharge Plan Departure Patient Disposition: [facility] Clinical Impression: Acute subdural hematoma, Periorbital hematoma of right eye Prescriptions: No Action aspirin [Sujata Low Dose Aspirin] 81 mg tablet,delayed release (DR/EC) 81 mg PO DAILY Referrals: Bernadette Kumar DO [Primary Care Provider] -
--- NOTE | 2025-01-13 20:08 | DI.CT.S_ITS ---
PROCEDURE: CT FACIAL BONES WO CON INDICATIONS: trauma TECHNIQUE: Noncontrast 2.5 mm thick axial images acquired from the mandible through the frontal sinuses, with coronal and sagittal reformatting. For radiation dose reduction, the following was used: automated exposure control, adjustment of mA and/or kV according to patient size. COMPARISON: None. FINDINGS: Image quality: Excellent. Bones and teeth: Orbital araujo are intact. Sinus araujo show no fracture or deformity. Nasal bones and septum are intact. Visualized portions of the mandible demonstrate no fractures or subluxation. Zygomatic arches are intact. Pterygoid plates are intact. Visualized portions of the skull base and auditory canals are intact. Sinuses: Paranasal sinuses are aerated, without fluid levels, mucosal thickening, or mucoceles. Mastoid air cells are aerated. Soft tissues: Left periorbital contusion. Left globe is intact, without intraconal or extraconal hematoma. Vascular: Visualized vascular structures appear normal in the absence of contrast. Bony vascular foramina and canals are intact. IMPRESSION: Left periorbital scalp contusion, without underlying fracture or perceived globe injury. Dictated by: Harvey Emery M.D. on 01/13/2025 at 20:41 Approved by: Harvey Emery M.D. on 01/13/2025 at 20:44
--- NOTE | 2025-01-13 20:08 | DI.CT.S_ITS ---
PROCEDURE: CT HEAD/BRAIN WO CON INDICATIONS: trauma TECHNIQUE: Noncontrast 4.5 mm thick angled axial sections acquired from the foramen magnum to the vertex, with coronal and sagittal reformats. For radiation dose reduction, the following was used: automated exposure control, adjustment of mA and/or kV according to patient size. COMPARISON: [facility], CT, CT FACIAL BONES WO CON, 01/13/2025, 20:21. FINDINGS: Image quality: Diagnostic. CSF spaces: Subdural hematoma overlying the left cerebral convexity, max diameter of 9 mm. Brain: Very mild midline shift, measuring 2 mm. No herniation. Skull and face: Calvarium and visualized facial bones appear intact, without suspicious lesions. Left anterior scalp hematoma without underlying fracture. Sinuses: Visualized sinuses and mastoids are clear. IMPRESSION: Subdural hematoma overlying the left cerebral convexity, maximum diameter of 9 mm. Left right midline shift of 2 mm. No herniation. Findings discussed with Dr. Vazquez at 8:42 p.m. On 01/13/2025. Dictated by: Harvey Emery M.D. on 01/13/2025 at 20:37 Approved by: Harvey Emery M.D. on 01/13/2025 at 20:41
[2025-01-13 22:23] LABS: Add Manual Diff / Slide Review NO; Basophils Absolute Auto 100 /uL (0-100); Basophils Percent Auto 0.9 % (0-2); Eosinophils Absolute Auto 200 /uL (0-450); Eosinophils Percent Auto 2.6 % (2-4); Hematocrit 36.5 % (36-46); Hemoglobin 12.4 g/dL (12.0-16.0); INR 0.9 (0.9-1.3); Lymphocytes Absolute Auto 2000 /uL (1100-4500); Lymphocytes Percent Auto 20.9 % (25-40); Mean Corpuscular HGB Conc 33.8 % (30-36); Mean Corpuscular Hemoglobin 30.7 PG (26-34); Mean Corpuscular Volume 90.6 fL (80-100); Monocytes Absolute Auto 700 /uL (0-900); Monocytes Percent Auto 7.6 % (3-14); Neutrophils Absolute Auto 6300 /uL (1500-7000); Platelet Count 231 X10^3/uL (150-400); Prothrombin Time 10.6 SECONDS (9.4-12.5); Red Blood Cell Count 4.03 X10^6/uL (4.0-5.2); Red Cell Distribution Width 13.6 % (11.6-14.8); White Blood Cell Count 9.3 X10^3/uL (4.5-11.0)
[2025-01-13 22:26] LABS: PTT Partial Thromboplastin Tim 32 SECONDS (25.1-36.5)
[2025-01-13 22:28] LABS: Alanine Aminotransferase 19 IU/L (<35); Albumin 4.3 g/dL (3.5-5.0); Albumin Globulin Ratio 1.3 (1.0-2.8); Alkaline Phosphatase 68 U/L (38-126); Aspartate Aminotransferase 45 IU/L (14-36); BUN Creatinine Ratio 21.1 (6-22); Bilirubin Total 0.5 mg/dL (0.2-1.3); Blood Urea Nitrogen 20 mg/dL (7-17); Calcium 9.5 mg/dL (8.4-10.2); Carbon Dioxide 26 mmol/L (22-32); Chloride 106 mmol/L (98-107); Estimated Glomerular Filt Rate > 60 mL/min (>60); Globulin 3.3 g/dL (1.7-4.1); Glucose 100 mg/dL (70-99); HEMOLYSIS 25 (0-50); Potassium 4.1 mmol/L (3.4-5.1); Sodium 139 mmol/L (137-145); Total Protein 7.6 g/dL (6.3-8.2)
== END 2025-01-13 23:18 | disposition short-term general hospital (02) ==
PROVIDERS: Emergency Provider Family Medicine; PCP Family Medicine
DX: S06.5X0A Traumatic subdural hemorrhage without loss of consciousness, initial encounter (principal); H05.231 Hemorrhage of right orbit; W18.30XA Fall on same level, unspecified, initial encounter
CPT/HCPCS: 36415; 70450; 70486; 80053; 85025; 85610; 85730; 99283; 99284

== ENCOUNTER → 2025-09-01 08:12 | Outpatient (CLI) | payer MEDICARE, OTHER, SELFPAY ==
--- NOTE | 2025-09-01 08:14 | DI.MG.S_ITS ---
MM screening mammo BI: 09/01/2025. BI-RADS: 1 CLINICAL: 75-year old female for bilateral screening mammogram. Tyrer-Cuzick lifetime risk of 7.9%. No personal or first-degree family history of breast cancer. Current reported family history of breast cancer: maternal grandmother. History of ovarian cancer in one first-degree relative. PRIOR EXAMS 08/06/2024,06/27/2023, 06/15/2022, 05/26/2021. MAMMOGRAPHY TECHNIQUE: 2D and 3D (tomosynthesis) digital mammographic views obtained, with additional images as needed for full coverage. Current study was also evaluated with a Computer Aided Detection (CAD) system. DENSITY C. The breasts are heterogeneously dense, which may obscure small masses. MAMMOGRAPHY FINDINGS Bilateral: No suspicious mass, asymmetry, microcalcification, or other abnormality seen. IMPRESSION: * No evidence of malignancy. RECOMMENDATIONS Bilateral * Annual screening mammography. OVERALL ASSESSMENT CATEGORY BI-RADS-1: Negative. [employer] recommends annual screening mammography beginning at age 40 for women with average risk of breast cancer. ELECTRONICALLY SIGNED: Eloisa Parekh M.D. on 09/01/2025 at 05:07:20 PM PT Interpreting Station ID: [id number]
== END ==
LOC: MAMMO 08:14
PROVIDERS: PCP Family Medicine; Referring Provider Family Medicine; Visit Provider Family Medicine
DX: Z12.31 Encounter for screening mammogram for malignant neoplasm of breast (principal); R92.333 Mammographic heterogeneous density, bilateral breasts; Z80.3 Family history of malignant neoplasm of breast; Z80.41 Family history of malignant neoplasm of ovary
CPT/HCPCS: 77063; 77067